=== PATIENT | male | born 1980 | race Asian ===

== ENCOUNTER 2019-07-31 20:27 | Outpatient (CLI) | payer OTHER | END 2019-07-31 20:33 | disposition short-term general hospital (02) | LOC: AMB 20:27 | DX: M25.551 Pain in right hip (principal); R42 Dizziness and giddiness; V49.9XXA Car occupant (driver) (passenger) injured in unspecified traffic accident, initial encounter; Y92.89 Other specified places as the place of occurrence of the external cause | CPT/HCPCS: A0425; A0427 ==

== ENCOUNTER 2019-07-31 20:38 | Emergency (ER) | payer OTHER ==
[~2019-07-31] VITALS: Ht 195.6 cm; Wt 120.2 kg
[2019-07-31 23:09] VITALS: BP 109/66; TEMP 97.7
== END 2019-07-31 23:14 ==
LOC: ED 20:38
DX: S09.90XA Unspecified injury of head, initial encounter (principal); S00.93XA Contusion of unspecified part of head, initial encounter; V49.40XA Driver injured in collision with unspecified motor vehicles in traffic accident, initial encounter; Y92.411 Interstate highway as the place of occurrence of the external cause
CPT/HCPCS: 81000; 99283

== ENCOUNTER 2020-06-12 22:03 | Emergency (ER) | payer OTHER ==
[~2020-06-12] VITALS: Ht 195.6 cm; Wt 120.2 kg
[2020-06-12 23:40] LABS: PLATELET COUNT 160 K/uL (142-355)
[2020-06-12 23:55] LABS: POTASSIUM 3.9 mmol/L (3.6-5.2)
[2020-06-13 01:49] VITALS: BP 151/88; TEMP 98.9
== END 2020-06-13 01:55 | disposition home or self-care (01) ==
LOC: ED 22:03
PROVIDERS: Emergency Medicine Emergency Medical Services
DX: L03.314 Cellulitis of groin (principal)
CPT/HCPCS: 36415; 80048; 80307; 81000; 82962; 85027; 87040; 87070; 87077; 87185; 87186; 87205; 96360; 96365; 96372; 99284; J1815; J3370; Q9963